=== PATIENT | male | born 1945 ===

== ENCOUNTER 2019-10-09 14:28 | Inpatient (IN) | payer MEDICARE, SELFPAY ==
[2019-10-09] VITALS (11 sets, daily range): BP systolic 144–172; BP diastolic 65–91; PULSE 67–85; RESP 17–40; TEMP 36.5–36.9; O2SAT 91–97; BMI 32.3
--- NOTE | 2019-10-09 14:33 | ED_ITS ---
Entered by Beth Beavers, acting as scribe for Candido Perez MD HPI - SOB/Dyspnea General: Chief Complaint: Shortness of Breath/Dyspnea Stated Complaint: DIFFICULTY BREATHING Time Seen by Provider: 10/09/19 14:33 Source: patient, EMS and RN notes reviewed Mode of arrival: EMS Limitations: no limitations History of Present Illness: HPI Narrative: 74 yo male presents to ED with complaints of shortness of breath. The patient is on 4.5L of oxygen at home, but upon EMS arrival his stats were in the low 80's. Per EMS report the patient has been in bed for 3 days. The patient resides at his home. Per the patient, he confirms that his status is DNI. elicited complaint: shortness of breath Pertinent past history: COPD and congestive heart failure Onset (ago): hour(s) (today) Timing: constant Severity: severe Exacerbating factors: lying flat and movement Relieving factors: nothing Known history of: COPD and congestive heart failure Associated symptoms: Deny abdominal pain, chest pain, fever(s), nausea, polyuria or vomiting Treatment prior to arrival: oxygen Related Data: Home oxygen amount: 4 liters (4.5) Review of Systems Const: Denies: fever or chills Eyes: Denies: change in vision ENMT: Denies: throat pain or mouth pain Card: Denies: chest pain GI: Denies: abdominal pain, nausea, vomiting or diarrhea Musc: Denies: back pain or joint pain Skin/Breast: Denies: rash Neuro: Denies: headache or behavioral changes Psych: Denies: depression Endo: Denies: excessive urination Benson/Lymph: Denies: easy bruising All/Imm: Denies: hives PFSH ED PFSH: Statuses (acute, chronic, etc) shown below reflect problem list status as previously entered and may not be historically accurate Social History Smoking and tobacco status: current every day smoker Physical Exam Const: GENERAL APPEARANCE: in distress HENMT: COMMON NORMALS: normocephalic and external nose normal HEAD & SCALP: normocephalic NOSE: external nose normal and no nasal discharge (nasal dischage) Eye: COMMON NORMALS: PERRL PUPIL: Yes PERRL Neck/C-Spine: COMMON NORMALS: full ROM and no lymphadenopathy Chest: COMMONS NORMALS: inspection of chest normal Resp: EFFORT & INSPECTION: Yes respiratory distress, Yes labored, Yes uses accessory muscles and Yes audible wheezes Cardio: COMMON NORMALS: regular rate and regular rhythm RATE: regular rate RHYTHM: regular rhythm GI: COMMON NORMALS: soft to palpation PALPATION: Yes soft Extremity: COMMON NORMALS: normal to inspection, full ROM and normal capillary refill Psych: COMMON NORMALS: mental status grossly normal and cooperative Skin: COMMON NORMALS: no rashes or lesions noted GENERAL SKIN EXAM: no rashes or lesions noted Course Vital Signs: Vital signs: Vital Signs Temperature 98.5 F 10/09/19 14:30 Pulse Rate 74 10/09/19 17:35 Respiratory Rate 22 H 10/09/19 17:35 Blood Pressure 168/77 10/09/19 17:35 Pulse Oximetry 95 10/09/19 17:35 MDM - SOB/Dyspnea MDM Narrative: Medical decision making narrative: Patient presents here with CHF exacerbation with respiratory distress. Patient is improving on BiPAP. Patient states that he would not want to be intubated if it came to that. I spoke to hospitalist and will admit to stepdown. Patient given antibiotics to for possible pneumonia but x-ray likely shows pulmonary edema. Lab Data: Labs: Lab Results 10/09/19 10/09/19 10/09/19 Range/Units 14:10 14:34 14:41 WBC 8.8 (4.0-10.0) 10^3/ uL RBC 4.70 (4.1-5.3) 10^6/u L Hgb 14.2 (11.7-16.6) g/dL Hct 48.8 (42.0-52.0) % MCV 103.8 H (80-94) fL MCH 30.2 (28.0-34.0) pg MCHC 29.1 L (30.0-36.0) g/dL RDW 13.1 (12.1-15.1) % Plt Count 244 (130-400) 10^3/c mm MPV 10.5 H (7.4-10.4) fL Neut % (Auto) 75.8 % Lymph % (Auto) 13.6 % [place] % (Auto) 9.2 % Eos % (Auto) 0.2 % Baso % (Auto) 0.5 % Neut # (Auto) 6.7 (1.8-7.7) 10^3/u L Lymph # (Auto) 1.2 (0.8-4.8) 10^3/u L [place] # (Auto) 0.8 (0.2-0.9) 10^3/u L Eos # (Auto) 0.0 (0.0-0.8) 10^3/u L Baso # (Auto) 0.0 (0.0-0.1) 10^3/u L Nucleated RBC % (a uto) 0 % Nucleated RBCs # 0.0 /100WBC Specimen Type Arterial Arterial Sample Site Radial, left Radial, left ABG pH 7.23 L 7.27 L (7.35-7.45) ABG pCO2 97.8 H* 88.6 H* (35-45) mmHg ABG pO2 81.2 67.7 L (80.0-100.0) mmH g ABG HCO3 40.6 H 40.7 H (22-26) mmol/L ABG Base Excess 8.8 H 9.9 H (-2.0-2.0) mmol/ L Eduardo Test Pos Pos Hematocrit 43.2 42.9 (42-52) % Hgb O2 Saturation 93.2 L (95-100) % Carboxyhemoglobin 1.6 (0.4-20.1) %THgb Methemoglobin 0.4 (0.4-1.5) % Total Hemoglobin 14.1 (14-18) g/dL O2 Delivery Device Simple mask Bipap O2 Liters/Min 6.0 % FiO2 40.0 % Floatlight Loading Supervisor ID monro monro Sodium (136-145) mmol/L Potassium (3.5-5.1) mmol/L Chloride (98-107) mmol/L Carbon Dioxide (22-29) mmol/L Anion Gap (5-19) BUN (8-23) mg/dL Creatinine (0.7-1.2) mg/dL Glucose (74-106) mg/dL Calcium (8.5-10.5) mg/dL Total Bilirubin (0.15-1.2) mg/dL AST (0-40) U/L ALT (0-41) U/L Alkaline Phosphata se (40-130) IU/L Troponin T Baselin e (0-15) ng/mL NT-Pro-B Natriuret Pep (0-125) pg/mL Total Protein (6.6-8.7) g/dL Albumin (3.5-5.2) g/dL Globulin (1.3-4.6) g/dL 10/09/19 10/09/19 Range/Units 15:14 15:14 WBC (4.0-10.0) 10^3/ uL RBC (4.1-5.3) 10^6/u L Hgb (11.7-16.6) g/dL Hct (42.0-52.0) % MCV (80-94) fL MCH (28.0-34.0) pg MCHC (30.0-36.0) g/dL RDW (12.1-15.1) % Plt Count (130-400) 10^3/c mm MPV (7.4-10.4) fL Neut % (Auto) % Lymph % (Auto) % [place] % (Auto) % Eos % (Auto) % Baso % (Auto) % Neut # (Auto) (1.8-7.7) 10^3/u L Lymph # (Auto) (0.8-4.8) 10^3/u L [place] # (Auto) (0.2-0.9) 10^3/u L Eos # (Auto) (0.0-0.8) 10^3/u L Baso # (Auto) (0.0-0.1) 10^3/u L Nucleated RBC % (a uto) % Nucleated RBCs # /100WBC Specimen Type Sample Site ABG pH (7.35-7.45) ABG pCO2 (35-45) mmHg ABG pO2 (80.0-100.0) mmH g ABG HCO3 (22-26) mmol/L ABG Base Excess (-2.0-2.0) mmol/ L Eduardo Test Hematocrit (42-52) % Hgb O2 Saturation (95-100) % Carboxyhemoglobin (0.4-20.1) %THgb Methemoglobin (0.4-1.5) % Total Hemoglobin (14-18) g/dL O2 Delivery Device O2 Liters/Min % FiO2 % Floatlight Loading Supervisor ID Sodium 147 H (136-145) mmol/L Potassium 4.4 (3.5-5.1) mmol/L Chloride 97 L (98-107) mmol/L Carbon Dioxide 38 H (22-29) mmol/L Anion Gap 16.4 (5-19) BUN 17 (8-23) mg/dL Creatinine 1.0 (0.7-1.2) mg/dL Glucose 184 H (74-106) mg/dL Calcium 10.1 (8.5-10.5) mg/dL Total Bilirubin 0.5 (0.15-1.2) mg/dL AST 20 (0-40) U/L ALT 20 (0-41) U/L Alkaline Phosphata se 110 (40-130) IU/L Troponin T Baselin e 114 H* (0-15) ng/mL NT-Pro-B Natriuret Pep 00277 H (0-125) pg/mL Total Protein 8.2 (6.6-8.7) g/dL Albumin 4.5 (3.5-5.2) g/dL Globulin 3.7 (1.3-4.6) g/dL Imaging Data^: CXR: Radiologist's impression: [facility] Final Radiology Report Call: [phone] assistance Online chat: [email or web address] Name: ALIZA NAGEL Age: 74Years M Date: 10/09/2019 SSN: -- : 1945 Study: XR CHEST 1 VIEW Requesting Physician: candido Perez Images: 1 Add?l Studies: Provided Clinical History: sob CONFIDENTIALITY STATEMENT This report is intended only for use by the referring physician, and only in accordance with law. If you received this in error, call [phone]. Page 1 of 1 PROCEDURE INFORMATION: Exam: XR Chest, 1 View Exam date and time: 10/09/2019 2:35 PM Age: 74 years old Clinical indication: Dyspnea; Patient HX: PT denies surg HX on chest, PT is a current smoker, PT denies HX of CA. ; Additional info: SOB TECHNIQUE: Imaging protocol: XR of the chest Views: 1 view. COMPARISON: [facility] Chest 2 views 02/02/2019 3:08 PM FINDINGS: Lungs: Diffusely prominent interstitial markings similar to prior wi th hazy increased bibasilar opacities partially silhouetting the hemidiaphragms, right greater than left. Otherwise no lobar consolidation. Pleural space: Small right effusion not excluded. No visible pneumothorax. Heart/Mediastinum: Cardiac silhouette mildly enlarged. Bones/joints: Unremarkable. IMPRESSION: Diffuse interstitial prominence with hazy increased right greater than left basilar opacities, favor edema superimposed on emphysema. Developing right lower lobe pneumonia not excluded. Thank you for allowing us to participate in the care of your patient. Dictated and Authenticated by: Elier Thomas MD 10/09/2019 EKG Data^: EKG 1: Attestation: I personally reviewed and interpreted this EKG as follows: EKG Interpretation Date: 10/09/19 EKG interpretation time: 15:08 Interpretation: nsr hr [address] or t wave abnormalities rbbb EKG 2: Attestation: I personally reviewed and interpreted this EKG as follows: EKG Interpretation Date: 10/09/19 EKG interpretation time: 16:35 Interpretation: nsr hr [address] with no st or t wave abnormalities Discharge Plan Discharge Patient Disposition: Admitted As Inpatient Admit Provider: Misa Joyce Clinical Impression: Congestive heart failure Qualifiers: Heart failure type: unspecified Heart failure chronicity: unspecified Qualified Code(s): I50.9 - Heart failure, unspecified Condition: Stable Coding Level of Care Code ED Deckhand Sponge Boat for Chg Fwd The documentation recorded by the Ruthann sethi Valerie R, accurately reflects the service I personally performed and the decisions made by Chris plunkett Korby, MD Oct 09, 2019 14:28
--- NOTE | 2019-10-09 14:34 | XRR_ITS ---
PROCEDURE INFORMATION: Exam: XR Chest, 1 View Exam date and time: 10/09/2019 2:35 PM Age: 74 years old Clinical indication: Dyspnea; Patient HX: PT denies surg HX on chest, PT is a current smoker, PT denies HX of CA. ; Additional info: SOB TECHNIQUE: Imaging protocol: XR of the chest Views: 1 view. COMPARISON: [facility] Chest 2 views 02/02/2019 3:08 PM FINDINGS: Lungs: Diffusely prominent interstitial markings similar to prior with hazy increased bibasilar opacities partially silhouetting the hemidiaphragms, right greater than left. Otherwise no lobar consolidation. Pleural space: Small right effusion not excluded. No visible pneumothorax. Heart/Mediastinum: Cardiac silhouette mildly enlarged. Bones/joints: Unremarkable. XR/XR chest 1V portable [id number] IMPRESSION: Diffuse interstitial prominence with hazy increased right greater than left basilar opacities, favor edema superimposed on emphysema. Developing right lower lobe pneumonia not excluded.
--- NOTE | 2019-10-09 14:35 | ECG_ITS ---
Measurements Intervals [place] Rate: 70 P: -17 [place]: 167 QRS: -80 QRSD: 150 T: 79 QT: 442 QTc: 479 SINUS RHYTHM LEFT AXIS DEVIATION [QRS AXIS < -30] RIGHT BUNDLE BRANCH BLOCK [120+ ms QRS DURATION, UPRIGHT V1, 40+ ms S IN I/aVL/V4/V5/V6] INTERPRETATION BASED ON A DEFAULT AGE OF 40 YEARS No previous ECG available for comparison Electronically Signed On 10-09-2019 18:54:09 QUALITY MANAGEMENT NURSE by Denny Olvera M.D. [id number]
[2019-10-09 14:47] LABS: Basophils % 0.5 %; Eosinophils % 0.2 %; Hematocrit 48.8 % (42.0-52.0); Hemoglobin 14.2 g/dL (11.7-16.6); Lymphocytes # 1.2 10^3/uL (0.8-4.8); Lymphocytes % 13.6 %; Mean Corpuscular HGB Conc 29.1 g/dL (30.0-36.0); Mean Corpuscular Hemoglobin 30.2 pg (28.0-34.0); Mean Corpuscular Volume 103.8 fL (80-94); Mean Platelet Volume 10.5 fL (7.4-10.4); Monocytes # 0.8 10^3/uL (0.2-0.9); Monocytes % 9.2 %; Neutrophils # 6.7 10^3/uL (1.8-7.7); Neutrophils % 75.8 %; Nucleated Red Blood Cells % 0 %; Platelet Count 244 10^3/cmm (130-400); Red Cell Distribution Width 13.1 % (12.1-15.1); White Blood Count 8.8 10^3/uL (4.0-10.0)
[2019-10-09 14:51] LABS: ABG PCO2 97.8 mmHg (35-45); ABG PH Result 7.23 (7.35-7.45); Arterial Blood Gas Hematocrit 43.2 % (42-52); Base Excess ABG 8.8 mmol/L (-2.0-2.0); Blood Gas Allen Test Pos; Blood Gas Sample Site Radial, left; Blood Gas Sample Type Arterial; Carboxyhemoglobin 1.6 %THgb (0.4-20.1); HCO3 ABG 40.6 mmol/L (22-26); HGB O2 Sat 93.2 % (95-100); Methemoglobin 0.4 % (0.4-1.5); Oxygen Device SIMPLE MASK; PO2 ABG 81.2 mmHg (80.0-100.0); Total Hemoglobin 14.1 g/dL (14-18)
[2019-10-09] MEDS: ipratropium-albuterol 3 mL Neb INHALATION ×2 (15:02→20:08)
[2019-10-09] MEDS: vancomycin 1,000 MG in sodium chloride 0.9% 250 ML 250 MG IV (15:55)
[2019-10-09] MEDS: piperacillin-tazobactam 3.375 GM in sodium chloride 0.9% (plus) 50 ML IV (15:55)
[2019-10-09 16:01] LABS: Alanine Aminotransferase 20 U/L (0-41); Albumin Level 4.5 g/dL (3.5-5.2); Alkaline Phosphatase 110 IU/L (40-130); Anion Gap 16.4 (5-19); Aspartate Amino Transferase 20 U/L (0-40); Blood Urea Nitrogen 17 mg/dL (8-23); Calcium 10.1 mg/dL (8.5-10.5); Carbon Dioxide 38 mmol/L (22-29); Chloride 97 mmol/L (98-107); Globulin 3.7 g/dL (1.3-4.6); Glucose 184 mg/dL (74-106); NT Pro B Type Natriuretic Pept 11474 pg/mL (0-125); Potassium 4.4 mmol/L (3.5-5.1); Sodium 147 mmol/L (136-145); Total Bilirubin 0.5 mg/dL (0.15-1.2); Total Protein 8.2 g/dL (6.6-8.7)
[2019-10-09 16:19] LABS: Troponin(5th) Baseline 114 ng/mL (0-15)
--- NOTE | 2019-10-09 16:35 | ECG_ITS ---
Measurements Intervals [place] Rate: 80 P: -8 [place]: 169 QRS: -84 QRSD: 146 T: 74 QT: 407 QTc: 470 SINUS RHYTHM WITH OCCASIONAL SUPRAVENTRICULAR PREMATURE COMPLEXES LEFT AXIS DEVIATION [QRS AXIS < -30] RIGHT BUNDLE BRANCH BLOCK [120+ ms QRS DURATION, UPRIGHT V1, 40+ ms S IN I/aVL/V4/V5/V6] No previous ECG available for comparison Electronically Signed On 10-09-2019 18:56:10 SENIOR GOVERNMENT PROGRAM ANALYST by Denny Olvera M.D. [id number]
[2019-10-09] MEDS: FUROsemide 10 mg/mL SDV 10mL 80 MG IVP (16:39)
[2019-10-09 16:55] LABS: ABG PCO2 88.6 mmHg (35-45); ABG PH Result 7.27 (7.35-7.45); Arterial Blood Gas Hematocrit 42.9 % (42-52); Base Excess ABG 9.9 mmol/L (-2.0-2.0); Blood Gas Allen Test Pos; Blood Gas Sample Site Radial, left; Blood Gas Sample Type Arterial; HCO3 ABG 40.7 mmol/L (22-26); Oxygen Device BIPAP; PO2 ABG 67.7 mmHg (80.0-100.0)
--- NOTE | 2019-10-09 17:54 | PM.HP ---
Providers/Chief Complaint Admitting Physician: Misa Joyce MD Chief Complaint: chf exacerbation;pneumonia History of Present Illness Dar Ellison is a 74 year old male with PMH 02 dependent chronic obstructive pulmonary disease(4L at home), chronic diastolic congestive heart failure on lasix, obstructive sleep apnea; he refuses to wear CPAP, coronary artery disease, morbid obesity, type II diabetes mellitus, hypertension, hyperlipidemia, abdominal aortic aneurysm repair and Prinzmetal's angina. He presented with complaints of worsening exertional dyspnea over the past 6 to 7 days. He states he got more more short of breath. Of note he has not been taking his Lasix over the past 2 to 3 days because it gave him muscle cramps. has been taking his nebulizations and oxygen at home. For the same. He has also noticed increased cough with expectoration. No other URI type symptoms. His has been sick with a cough as well. No chest pain or palpitations. Does not note any dizziness or falls. Upon arrival at the ED here he was noted to be in severe respiratory distress. He was tachypneic with respiratory rate in the 40s. ABG at presentation showed a pH of 7.23, CO2 of 97.8, PO2 of 81. upon arrival received 80 mg of IV Lasix 25 mg of IV Solu-Medrol and has remained on BiPAP since then. He was also reportedly mildly lethargic. At the time of my exam he is able to talk in sentences and gives me a history. His respiratory rate at this present time 22/min. He appears more comfortable at exam reportedly. Review of Systems General: Reports: 10 or more systems reviewed and unremarkable except in HPI and below Const: Denies: fever, chills or body aches Eyes: Denies: change in vision, blurry vision or photophobia ENMT: Reports: hoarseness; Denies: throat pain, enlarged tonsils, painful swallowing or nasal congestion Card: Denies: chest pain, palpitations, irregular heart rhythm, edema, swelling of feet/ankles, lightheadedness, pre-syncope, shortness of breath on exertion or shortness of breath when lying down Resp: Reports: productive cough and change in phlegm color; Denies: shortness of breath, wheezing, stridor, pain on inspiration, coughing up blood or chest congestion GI: Denies: abdominal pain, nausea, vomiting, vomiting blood, coffee grounds in vomit, difficulty swallowing, heartburn/indigestion, diarrhea, constipation, cramping, change in stool character, blood in stool or black tarry stool : Denies: flank pain, painful urination, urinary frequency, urinary urgency, urinary hesitancy or blood in urine Musc: Denies: neck pain, back pain, extremity pain, joint swelling, joint warmth or deformity Neuro: Denies: headache, numbness in extremities, weakness in extremities, changes in sensation, difficulty walking, frequent falls, dizziness, vertigo, behavioral changes, slurred speech or seizure-like activity Psych: Denies: anxiety, depression, suicidal ideation or homicidal ideation Endo: Denies: excessive urination, excessive thirst, tired all the time, cold intolerance or hot flashes Benson/Lymph: Denies: easy bruising or easy bleeding Medications/Allergies Home Medications Medication Instructions Recorded Confirmed Last Taken Type aspirin 325 mg PO DAILY 10/09/19 10/09/19 10/09/19 History furosemide [Lasix] 60 mg PO DAILY 10/09/19 10/09/19 10/08/19 History glyburide See Rx Instructions .ROUTE .COMPLEX 10/09/19 10/09/19 10/08/19 History irbesartan 300 mg PO DAILY 10/09/19 10/09/19 10/08/19 History isosorbide mononitrate 240 mg PO DAILY 10/09/19 10/09/19 10/08/19 History metoprolol tartrate 25 mg PO BID 10/09/19 10/09/19 10/08/19 History nitroglycerin [Nitrostat] 0.4 mg SUBLINGUAL Q5M PRN 10/09/19 10/09/19 Unknown History tramadol 50 mg PO TID PRN 10/09/19 10/09/19 10/08/19 History Allergies Allergy/AdvReac Type Severity Reaction Status Date / Time No Known Allergies Allergy Verified 10/09/19 14:39 PFSH Acute PFSH: Statuses (acute, chronic, etc) shown below reflect problem list status as previously entered and may not be historically accurate Medical History (Updated 10/09/19 @ 18:02 by Misa Joyce MD) CAD (coronary artery disease) (Acute) COPD (chronic obstructive pulmonary disease) (Acute) Diabetes mellitus (Acute) Hypercapnic respiratory failure (Acute) Hyperlipidemia (Acute) Hypertension (Acute) Morbid obesity (Acute) Prinzmetal angina (Acute) Sleep apnea (Acute) Surgical History (Updated 10/09/19 @ 18:02 by Misa Joyce MD) S/P AAA repair (Acute) Family History (Updated 10/09/19 @ 18:02 by Misa Joyce MD) Other CAD (coronary artery disease) Social History (Updated 10/09/19 @ 18:03 by Misa Joyce MD) Smoking and tobacco status: current every day smoker Alcohol intake: former Substance/Drug Use: never Vitals/I&O/Wt Last Vital Signs Temp 98.5 F 10/09/19 14:30 Pulse 74 10/09/19 17:35 Resp 22 H 10/09/19 17:35 BP 168/77 10/09/19 17:35 Pulse Ox 95 10/09/19 17:35 Weight last 48 hrs Weight 111.13 kg Physical Exam Narrative: EXAM NARRATIVE: GEN: Awake, alert and oriented, able to talk to me with sentences though on BiPAP. HEENT: Currently on BiPAP CVS: S1S2 N RS: Bilateral coarse conducted breath sounds and crackles in the infra-axillary areas. Abd: Soft, nt/nd , bs+ JOURNEYMAN SHEET METAL WORKER: no focal neuro deficits Extremity 2+ pitting edema peripheral pulses within normal limits. Data : 10/09/19 14:10 10/09/19 15:14 Micro: Microbiology 10/09/19 14:51 Blood Culture - Preliminary Blood SPECIMEN COLLECTED 10/09/19 14:48 Blood Culture - Preliminary Blood SPECIMEN COLLECTED A&P Assessment and plan (1) Hypertension: Status: Acute Code(s): I10 - Essential (primary) hypertension (2) Morbid obesity: Status: Acute Code(s): E66.01 - Morbid (severe) obesity due to excess calories (3) Diabetes mellitus: Status: Acute Code(s): E11.9 - Type 2 diabetes mellitus without complications (4) Hyperlipidemia: Status: Acute Code(s): E78.5 - Hyperlipidemia, unspecified (5) CAD (coronary artery disease): Status: Acute Code(s): I25.10 - Atherosclerotic heart disease of [place] coronary artery without angina pectoris (6) Sleep apnea: Status: Acute Code(s): G47.30 - Sleep apnea, unspecified (7) Hypercapnic respiratory failure: Status: Acute Code(s): J96.92 - Respiratory failure, unspecified with hypercapnia (8) COPD (chronic obstructive pulmonary disease): Status: Acute Code(s): J44.9 - Chronic obstructive pulmonary disease, unspecified (9) Congestive heart failure: Status: Acute Qualifiers: Heart failure chronicity: unspecified Heart failure type: unspecified Qualified Code(s): I50.9 - Heart failure, unspecified Code(s): I50.9 - Heart failure, unspecified Additional A&P Information Admit patient to the cardiac stepdown unit. 1 . CHF exacerbation likely secondary to medication noncompliance He has already received 80 mg of IV push Lasix in the ED. We will start 80 mg IV Lasix every 12 hours. Kirkpatrick placement for accurate urine output assessment. Continue irbesartan 3 mg p.o. daily. If not on formulary may be replaced by formulary medication BNP grossly elevated at >83224 2. Acute hypercapnic respiratory failure secondary to COPD exacerbation. DuoNebs inhalation every 4 hour. Steroids Solu-Medrol 80 mg IV every 6 hours Continuous BiPAP for now and at nighttime. May titrate down to nasal cannula as tolerated. Cannot rule rule out developing infiltrate on chest x-ray. Start Levaquin 750 mg daily. 3. Diabetes: Insulin siding scale for now hold home dose of OHA 4. HTN: continue irbesartan 5. h/o CAD: continue ASA 325mg qd. troponin elevated likely in the setting of CHF. 2 hr delta <10. No chest pain or acute ST-T changes on EKG DVT ppx: lovenox Code status: DNR Attestations Medical Necessity Statement*: >2 midnight anticipated for management of acute on chronic CHF and COPD exacerbation Coding Level of Care Code Acute Air Twist Operator for Chg Fwd Diagnoses Hypertension I10 Morbid obesity E66.01 Diabetes mellitus E11.9 Hyperlipidemia E78.5 CAD (coronary artery disease) I25.10 Sleep apnea G47.30 Hypercapnic respiratory failure J96.92 COPD (chronic obstructive pulmonary disease) J44.9 Congestive heart failure I50.9 Heart failure chronicity: unspecified Heart failure type: unspecified
[2019-10-09] MEDS: enoxaparin 40 mg/0.4 mL Syringe SUBCUT (19:10)
[2019-10-09] MEDS: metoprolol tartrate 25 mg Tablet PO (19:10)
--- NOTE | 2019-10-09 19:40 | PC.NURSE ---
Walked into patients room and patient had ripped off his bipap mask off and ripped out one of his IV's. This nurse asked the patient why he took his bipap off and he said cause he wanted too and that he was hot. I explained why the patient needed the bipap off and asked if we took a break if he would try wearing it again at bedtime. Patient agreed, and nasal cannula was applied. Patients other IV was cobanded, Patient knew where he was, who he was, year, and thought the president was [facility]. Patient also knew which button to press to call the nurse. Patients bed alarm activated. Patients to L arm was catheter was intact, dressing implied, minimal bleeding noted. Will continue to monitor.
--- NOTE | 2019-10-09 20:35 | ECG_ITS ---
Measurements Intervals [place] Rate: 72 P: 9 [place]: 170 QRS: -87 QRSD: 141 T: 85 QT: 414 QTc: 453 SINUS RHYTHM MARKED LEFT AXIS DEVIATION [QRS AXIS < -30] RIGHT BUNDLE BRANCH BLOCK [120+ ms QRS DURATION, UPRIGHT V1, 40+ ms S IN I/aVL/V4/V5/V6] Compared to ECG 10/09/2019 16:35:47 No significant changes Electronically Signed On 10-10-2019 17:52:31 PULP MAKER by Denny Olvera M.D. [id number]
[2019-10-09 20:59] LABS: Glucose Point of Care 266 mg/dL (70-110)
[2019-10-09 21:53] LABS: Troponin 5 6HR Delta 10.4 ng/L (0-12)
[2019-10-09 21:57] LABS: Troponin 5 6HR 124.4 ng/L (0-15)
--- NOTE | 2019-10-09 22:26 | PC.NURSE ---
At 2208 Went and assessed after critical troponin and patient stated he was having 8/10 chest pain. Blood pressure was elevated and patient was having trouble breathing with respirations in the 30's. Patient was pale with increased confusion. Patient stated put that thing on me . I asked if he meant the bipap and he said yes . Bipap was placed and I contacted the doctor to update on patient appearance. At 2229 one on one sitter called out asking for assistance and I went down. Patient was cussing at the sitter, pulling at the edwards, stating that he never agreed to wear the bipap and he never had chest pain. I tried to re orient patient and explain what the bipap was for and that his respirations had already improved and were 20. Patient said he did not care and wanted it off NOW. Bipap was removed and nasal cannula applied, I asked if patient was in any pain and he denied at this time. Will continue to monitor.
[2019-10-10] VITALS (24 sets, daily range): BP systolic 126–169; BP diastolic 62–116; PULSE 56–106; RESP 16–36; TEMP 36.6–37.2; O2SAT 88–95
[2019-10-10] MEDS: ipratropium-albuterol 3 mL Neb INHALATION ×6 (03:23→23:29)
[2019-10-10 05:04] LABS: Basophils % 0.1 %; Hematocrit 46.9 % (42.0-52.0); Hemoglobin 14.1 g/dL (11.7-16.6); Lymphocytes # 0.3 10^3/uL (0.8-4.8); Mean Corpuscular HGB Conc 30.1 g/dL (30.0-36.0); Mean Corpuscular Volume 99.8 fL (80-94); Mean Platelet Volume 10.5 fL (7.4-10.4); Monocytes # 0.4 10^3/uL (0.2-0.9); Monocytes % 4.2 %; Neutrophils # 7.7 10^3/uL (1.8-7.7); Neutrophils % 91.1 %; Nucleated Red Blood Cells % 0 %; Platelet Count 242 10^3/cmm (130-400); White Blood Count 8.5 10^3/uL (4.0-10.0)
[2019-10-10] MEDS: levoFLOXacin 750 mg Tablet PO (05:19)
[2019-10-10] MEDS: FUROsemide 10 mg/mL SDV 10mL 80 MG IVP ×2 (05:20→17:23)
[2019-10-10 05:38] LABS: Blood Urea Nitrogen 24 mg/dL (8-23); Calcium 10.3 mg/dL (8.5-10.5); Carbon Dioxide 36 mmol/L (22-29); Chloride 92 mmol/L (98-107); Glucose 255 mg/dL (74-106); Osmolality Calculated 303 mOsm/kg (285-295); Sodium 144 mmol/L (136-145)
--- NOTE | 2019-10-10 06:23 | PC.NURSE ---
Patient remains confused. 1:1 sitter at bedside. Patient refusing to wear bipap. Staff has tried multiple times to get him to wear bipap and he will for 30 minutes and then get agitated and rip it off. Patient states the bipap makes him hot or he just doesn't want to wear it . Patient has been incontinent of stool x2. Patient is weak and requires x2 assist to stand. Patient has pulled at his edwards catheter, IV site, telemetry, and is restless at times. Will continue to monitor.
[2019-10-10 06:37] LABS: Glucose Point of Care 210 mg/dL (70-110)
[2019-10-10] MEDS: aspirin 325 mg Tablet PO (09:47)
[2019-10-10] MEDS: losartan 50 mg Tablet 100 MG PO (09:47)
[2019-10-10] MEDS: pantoprazole DR 40 mg Tablet PO (09:47)
[2019-10-10] MEDS: metoprolol tartrate 25 mg Tablet PO ×2 (09:48→17:23)
[2019-10-10 11:38] LABS: Glucose Point of Care 122 mg/dL (70-110)
--- NOTE | 2019-10-10 12:44 | PC.CHAP ---
Pastoral Care Encounter/Spiritual Assessment Type of Contact [] Declined health data administrator visit [] Patient/Family/Request visit [] Outpatient visit [] Follow-up visit [] Physician referral [] Code/Alert [x] Routine visit [] Staff referral [] Actively dying [] Patient sleeping [] Family support [] [] Out of room [] Palliative care [] [x] Receiving care in room [] Pre-surgical visit [] Trauma [x] Long length of stay [] ICU visit [x] Other: No one manager of organizational development. Relational/Emotional Strength [] Patient feels connected with others/family/visitors/staff [x] Distress [x] Loneliness/isolation [] Abandonment Spirituality of Patient [x] Person of Payal [] Attends Restorationist of their Payal [x] Believes in Prayer [] Reads Bible or Christianity materials [] There are Spiritual issues to be addressed Hide Cleaner Interventions [x] Prayer [x] Active listening [] Non-anxious presence [x] Spiritual/emotional support [] Crisis/trauma care [x] Spiritual counseling [] Bereavement support [] Provided bereavement packet [] Provided Bible/devotional materials [] Provided toy/stuffed animal, coloring book to patient or family member [x] Completed spiritual assessment [] Provided Communion [] Anointing/[place] [] Salvation [] Other: Impact on Illness or Injury [] Angry [x] Fearful [x] Anxious [] Often cries [x] Exhaustion [] Unable to work [] Unable to attend moravian [] Unable to walk/stand [x] Unable to read [] Unable to drive [] Unable to eat/drink [] Unable to sleep [x] Unable to be with family [] Other: Summary Able to communicate, but doesn't know anynof sysemtoms. Had one on one care in room. Time spent with patient 10 min
--- NOTE | 2019-10-10 13:18 | PM.PN ---
Subjective Subjective: Interval history: Overnight patient refused to wear the BiPAP. Was confused and pulling on his Kirkpatrick catheter so 1 is to 1 sitter was placed. On evaluation patient is lying comfortably in bed with CPAP on. He saturating 94% on CPAP 8. He is AO x2. As per his daughter who is bedside patient is hallucinating. Patient denies of having any nausea, vomiting, headache. Medications: Medication Review Details: Med rec not completely done Vitals/I&O/Wt Last Vital Signs Temp 97.8 F 10/10/19 11:30 Pulse 70 10/10/19 11:30 Resp 22 H 10/10/19 11:30 BP 166/89 10/10/19 11:30 Pulse Ox 90 10/10/19 11:30 10/09/19 10/10/19 10/10/19 22:59 06:59 14:59 Intake Total 240 / 240 238 / 238 Output Total 1600 / 1600 1000 / 2600 1999 / 1999 Balance -1600 / -1600 -760 / -2360 -1762 / -1762 Weight last 48 hrs Weight 111.13 kg Physical Exam Narrative: EXAM NARRATIVE: General: No acute distress, AO x 2, to self and place. Confused. HEENT: PERRLA, pupils bilaterally equal and reactive Chest: Normal vesicular breath sounds, bilateral fine crackles up to mid chest, equal good air entry bilaterally CVS: S1-S2 regular, no murmurs, no tachycardia, no gallops, no rubs Abdomen: Soft, nontender, no organomegaly, bowel sounds present Neuro: No focal deficits, no facial deformity, moving all 4 limbs, power 5/5 in all limbs Urinary Catheter Management^: Kirkpatrick: Cath Placed During This Visit: no Data : 10/10/19 04:13 10/10/19 04:13 Micro: Microbiology 10/09/19 14:51 Blood Culture - Preliminary Blood SPECIMEN COLLECTED 10/09/19 14:48 Blood Culture - Preliminary Blood SPECIMEN COLLECTED A&P Assessment and plan (1) Acute on chronic respiratory failure with hypoxia and hypercapnia: Status: Acute Code(s): J96.21 - Acute and chronic respiratory failure with hypoxia; J96.22 - Acute and chronic respiratory failure with hypercapnia (2) Congestive heart failure: Status: Acute Qualifiers: Heart failure chronicity: unspecified Heart failure type: unspecified Qualified Code(s): I50.9 - Heart failure, unspecified Code(s): I50.9 - Heart failure, unspecified (3) COPD (chronic obstructive pulmonary disease): Status: Acute Code(s): J44.9 - Chronic obstructive pulmonary disease, unspecified (4) Sleep apnea: Status: Acute Code(s): G47.30 - Sleep apnea, unspecified (5) Hypertension: Status: Acute Code(s): I10 - Essential (primary) hypertension (6) Diabetes mellitus: Status: Acute Code(s): E11.9 - Type 2 diabetes mellitus without complications (7) Hyperlipidemia: Status: Acute Code(s): E78.5 - Hyperlipidemia, unspecified (8) CAD (coronary artery disease): Status: Acute Code(s): I25.10 - Atherosclerotic heart disease of [place] coronary artery without angina pectoris (9) Morbid obesity: Status: Acute Code(s): E66.01 - Morbid (severe) obesity due to excess calories Additional A&P Information Acute on chronic respiratory failure with hypoxia and hypercapnia: Most likely multifactorial .mostly congestive heart failure of unknown type due to noncompliance with medication along with COPD exacerbation and sleep apnea. BNP grossly elevated to more than 11,000. Last echo from 2019 shows dilated LV with EF of 36% and grade 2 diastolic dysfunction. Patient is overall 4.5 L negative since admission. We will continue IV Lasix 80 mg twice daily. Will monitor kidney functions. Strict intake and output charting. Daily weights. Patient is noncompliant to CPAP. Saturating 94% on pressure of 8. We will give a trial of high flow keeping saturation over 90%. Continue DuoNeb's [id number], budesonide twice daily. Continue with Levaquin already started yesterday. Day 2/5. Will wean off Solu-Medrol to 40 every 12 today. 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 Patient smokes up to 3 packs/day. Already weaning off Solu-Medrol. Nicotine patch ordered. Diabetes: Continue with moderate insulin siding scale for now hold home dose of OHA. Check HbA1c. Hypertension: Continue on home dose of RONI inhibitor. Blood pressure at goal. Patient also takes Imdur at home but not sure of the dose. Have asked the to get the medication list. h/o CAD: Troponins negative. Continue with home dose of aspirin. Patient is not on statin at home. Will check lipid panel tomorrow morning. DVT ppx: lovenox Code status: DNR Attestations Medical Necessity Statement*: Needs controlled hospitalization for management of acute on chronic respiratory failure with hypoxia and hypercapnia. Time Spent in Patient Care: Greater than 35 minutes Coding Level of Care Code Acute Metallic Yarn Slitting Machine Operator for [facility] Fwd Diagnoses Acute on chronic respiratory failure with hypoxia and hypercapnia J96.21; J96.22 Congestive heart failure I50.9 Heart failure chronicity: unspecified Heart failure type: unspecified COPD (chronic obstructive pulmonary disease) J44.9 Sleep apnea G47.30 Hypertension I10 Diabetes mellitus E11.9 Hyperlipidemia E78.5 CAD (coronary artery disease) I25.10 Morbid obesity E66.01
[2019-10-10] MEDS: TRAMadol 50 mg Tablet PO (14:59)
[2019-10-10 16:48] LABS: Glucose Point of Care 228 mg/dL (70-110)
[2019-10-10] MEDS: enoxaparin 40 mg/0.4 mL Syringe SUBCUT (17:23)
--- NOTE | 2019-10-10 20:28 | PC.NURSE ---
Med reconciled and clarified/family brought pt's home bottles brought pt's home med bottles. Meds were reviewed and reconciled. Called [facility] pharmacy regarding pt's Imdur. Pharmacy stated pt has not refill his meds since January 2019. He does have the Rx of 240 mg of Imdur ER daily. Notified.
[2019-10-10] MEDS: nicotine 21 mg Patch 1 PATCH TRANSDERMA (20:49)
[2019-10-10 21:31] LABS: Glucose Point of Care 138 mg/dL (70-110)
[2019-10-11] VITALS (22 sets, daily range): BP systolic 103–168; BP diastolic 48–69; PULSE 52–69; RESP 16–31; TEMP 36.5–36.9; O2SAT 87–95
[2019-10-11] MEDS: ipratropium-albuterol 3 mL Neb INHALATION ×6 (03:09→23:27)
[2019-10-11 04:15] LABS: Anion Gap 15.1 (5-19); Blood Urea Nitrogen 39 mg/dL (8-23); Calcium 10.2 mg/dL (8.5-10.5); Chloride 89 mmol/L (98-107); Chol HDL Ratio 4.35 mg/dL (1.0-5.00); Cholesterol 213 mg/dL (0-200); Glucose 198 mg/dL (74-106); HDL Cholesterol 49 mg/dL (60-100); LDL Cholesterol Calculated 122 mg/dL (50-129); Osmolality Calculated 307 mOsm/kg (285-295); Potassium 4.1 mmol/L (3.5-5.1); Sodium 147 mmol/L (136-145); Triglycerides 211 mg/dL (0-150); VLDL Cholestrol Calculation 42 mg/dL (0-30)
[2019-10-11 04:34] LABS: Hematocrit 51.3 % (42.0-52.0); Hemoglobin 15.6 g/dL (11.7-16.6); Lymphocytes # 0.9 10^3/uL (0.8-4.8); Lymphocytes % 10.2 %; Mean Corpuscular HGB Conc 30.4 g/dL (30.0-36.0); Mean Corpuscular Hemoglobin 29.8 pg (28.0-34.0); Mean Corpuscular Volume 98.1 fL (80-94); Mean Platelet Volume 10.6 fL (7.4-10.4); Monocytes % 11.3 %; Neutrophils # 6.8 10^3/uL (1.8-7.7); Neutrophils % 78.2 %; Nucleated Red Blood Cells % 0 %; Platelet Count 254 10^3/cmm (130-400); Red Blood Count 5.23 10^6/uL (4.1-5.3); Red Cell Distribution Width 13.2 % (12.1-15.1); White Blood Count 8.7 10^3/uL (4.0-10.0)
[2019-10-11 05:13] LABS: Carbon Dioxide 47 mmol/L (22-29)
[2019-10-11] MEDS: FUROsemide 10 mg/mL SDV 10mL 80 MG IVP (05:54)
[2019-10-11] MEDS: levoFLOXacin 750 mg Tablet PO (05:55)
[2019-10-11 06:04] LABS: Estmated Average Glucose 157; Hemoglobin A1C 7.1 % (4.0-6.0)
[2019-10-11 06:41] LABS: Glucose Point of Care 149 mg/dL (70-110)
--- NOTE | 2019-10-11 06:42 | PC.NURSE ---
CRITICAL LAB WAS CALLED TO FLOOR AND CHARGE NURSE TOOK IT. CHARGE NURSE NOTIFIED HOSPITALIST. NO FURTHER ACTION WAS TAKEN. NO NEW ORDERS.
[2019-10-11] MEDS: metoprolol tartrate 25 mg Tablet PO (08:27)
[2019-10-11] MEDS: pantoprazole DR 40 mg Tablet PO (08:27)
[2019-10-11] MEDS: aspirin 325 mg Tablet PO (08:28)
[2019-10-11] MEDS: losartan 50 mg Tablet 100 MG PO (08:29)
[2019-10-11] MEDS: nicotine 21 mg Patch 1 PATCH TRANSDERMA (08:29)
[2019-10-11 09:51] LABS: ABG PCO2 76.3 mmHg (35-45); ABG PH Result 7.46 (7.35-7.45); Arterial Blood Gas Hematocrit 50.2 % (42-52); Base Excess ABG 23.5 mmol/L (-2.0-2.0); Blood Gas Allen Test Pos; Blood Gas Sample Site Radial, left; Blood Gas Sample Type Arterial; HCO3 ABG 53.6 mmol/L (22-26); Oxygen Device NC; PO2 ABG 56.8 mmHg (80.0-100.0)
[2019-10-11 11:47] LABS: Glucose Point of Care 200 mg/dL (70-110)
[2019-10-11 15:47] LABS: ABG PH Result 7.43 (7.35-7.45); Arterial Blood Gas Hematocrit 50.1 % (42-52); Base Excess ABG 18.6 mmol/L (-2.0-2.0); Blood Gas Allen Test Pos; Blood Gas Sample Site Radial, left; Blood Gas Sample Type Arterial; HCO3 ABG 48.1 mmol/L (22-26); Oxygen Device NC; PO2 ABG 57.5 mmHg (80.0-100.0)
--- NOTE | 2019-10-11 16:01 | PM.PN ---
Subjective Subjective: Interval history: No acute events overnight. Patient has been doing better since being put on high flow nasal cannula PEEP. Patient is AO x3 this morning. States that shortness of breath is mildly improved. Denies of having any nausea, vomiting, palpitations, headache. Overnight telemetry shows his heart rate is been in 50 to 60 bpm. Vitals/I&O/Wt Last Vital Signs Temp 98.0 F 10/11/19 11:25 Pulse 57 L 10/11/19 15:41 Resp 18 10/11/19 15:41 BP 127/65 10/11/19 11:25 Pulse Ox 88 L 10/11/19 15:41 10/11/19 10/11/19 10/11/19 06:59 14:59 22:59 Intake Total 720 / 720 Output Total 850 / 2950 1000 / 1000 Balance -850 / -2352 -280 / -280 Weight last 48 hrs Weight 105.097 kg Physical Exam Narrative: EXAM NARRATIVE: General: No acute distress, AO x 2, to self and place. Confused. HEENT: PERRLA, pupils bilaterally equal and reactive Chest: Bronchial breath sounds all over the lung gardiner, rhonchi present more on the right side than left up to mid chest on the right side, equal good air entry bilaterally CVS: S1-S2 regular, no murmurs, no tachycardia, no gallops, no rubs Abdomen: Soft, nontender, no organomegaly, bowel sounds present Neuro: No focal deficits, no facial deformity, moving all 4 limbs, power 5/5 in all limbs Urinary Catheter Management^: Kirkpatrick: Cath Placed During This Visit: no Data : 10/11/19 03:35 10/11/19 03:35 Micro: Microbiology 10/09/19 14:51 Blood Culture - Preliminary Blood NEGATIVE TO DATE 10/09/19 14:48 Blood Culture - Preliminary Blood NEGATIVE TO DATE A&P Assessment and plan (1) Acute on chronic respiratory failure with hypoxia and hypercapnia: Status: Acute Code(s): J96.21 - Acute and chronic respiratory failure with hypoxia; J96.22 - Acute and chronic respiratory failure with hypercapnia (2) Congestive heart failure: Status: Acute Qualifiers: Heart failure chronicity: unspecified Heart failure type: unspecified Qualified Code(s): I50.9 - Heart failure, unspecified Code(s): I50.9 - Heart failure, unspecified (3) COPD (chronic obstructive pulmonary disease): Status: Acute Code(s): J44.9 - Chronic obstructive pulmonary disease, unspecified (4) Sleep apnea: Status: Acute Code(s): G47.30 - Sleep apnea, unspecified (5) Hypertension: Status: Acute Code(s): I10 - Essential (primary) hypertension (6) Diabetes mellitus: Status: Acute Code(s): E11.9 - Type 2 diabetes mellitus without complications (7) Hyperlipidemia: Status: Acute Code(s): E78.5 - Hyperlipidemia, unspecified (8) CAD (coronary artery disease): Status: Acute Code(s): I25.10 - Atherosclerotic heart disease of [place] coronary artery without angina pectoris (9) Morbid obesity: Status: Acute Code(s): E66.01 - Morbid (severe) obesity due to excess calories Additional A&P Information Acute on chronic respiratory failure with hypoxia and hypercapnia: Multifactorial .mostly congestive heart failure of unknown type due to noncompliance with medication along with COPD exacerbation and sleep apnea. BNP grossly elevated to more than 11,000. Last echo from 2019 shows dilated LV with EF of 36% and grade 2 diastolic dysfunction. Patient is overall 5 L negative since admission. Patient developing severe contraction alkalosis today. Will change IV Lasix to 40 mg twice daily. We will give him to 50 mg IV acetazolamide today as patient still needs diuresis. Strict intake and output charting. Daily weights. Patient is noncompliant to CPAP. Saturating 94% on pressure of 8. Saturating well on high flow. Stat ABG in view of contraction alkalosis. We will give a trial of putting patient on nasal cannula keeping saturation over 88%. Will repeat ABG at around 4 PM. Repeat BMP at around 4 PM to review contraction alkalosis. Continue DuoNeb's [id number], budesonide twice daily. Continue with Levaquin already started yesterday. Day 3/5. Will wean off Solu-Medrol to 40 milligrams daily. Confusion: Resolved. Will continue on nicotine patch. Steroids are already being weaned off. Diabetes: Continue with moderate insulin siding scale for now hold home dose of OHA. A1c 7.1. Hypertension: Going into mild TYE. Will decrease the dose of losartan to 50 mg. Patient also takes Imdur to 40 mg at home. Will hold off for now given controlled blood pressures on losartan. h/o CAD: Troponins negative. Continue with home dose of aspirin. Patient is not on statin at home. Will check lipid panel tomorrow morning. DVT ppx: lovenox Code status: DNR Care coordination consult: Patient with most likely need home health services versus SNF placement given severe deconditioning. Physical therapy. We will try to sit patient in chair today. Attestations Medical Necessity Statement*: Needs continued hospitalization for management of acute on chronic respiratory failure due to CHF Time Spent in Patient Care: Greater than 35 minutes (>than 50% of time spent in counselling and/or direct pt care on unit). Coding Level of Care Code Acute Medical Imaging Technician for [facility] Diagnoses Acute on chronic respiratory failure with hypoxia and hypercapnia J96.21; J96.22 Congestive heart failure I50.9 Heart failure chronicity: unspecified Heart failure type: unspecified COPD (chronic obstructive pulmonary disease) J44.9 Sleep apnea G47.30 Hypertension I10 Diabetes mellitus E11.9 Hyperlipidemia E78.5 CAD (coronary artery disease) I25.10 Morbid obesity E66.01
[2019-10-11] MEDS: TRAMadol 50 mg Tablet PO (16:04)
[2019-10-11] MEDS: FUROsemide 40 mg Tablet PO (16:05)
--- NOTE | 2019-10-11 16:39 | PC.PT ---
PT evaluation attempted today, patient declined, requesting tomorrow instead, despite encouragement of his spouse who was present.
[2019-10-11 16:43] LABS: Glucose Point of Care 222 mg/dL (70-110)
[2019-10-11] MEDS: enoxaparin 40 mg/0.4 mL Syringe SUBCUT (18:05)
[2019-10-11 19:22] LABS: Anion Gap 16.9 (5-19); Blood Urea Nitrogen 52 mg/dL (8-23); Calcium 10.5 mg/dL (8.5-10.5); Chloride 86 mmol/L (98-107); Glucose 257 mg/dL (74-106); Osmolality Calculated 307 mOsm/kg (285-295); Potassium 3.9 mmol/L (3.5-5.1); Sodium 145 mmol/L (136-145)
[2019-10-11 19:24] LABS: Carbon Dioxide 46 mmol/L (22-29)
--- NOTE | 2019-10-11 19:45 | PC.NURSE ---
Patient is alert and oriented x4 at this time. Bed alarm has been set. Patient has been show how to use his call light and has it within reach. Patient's oxygen saturation is 95% on 4 L NC at this time. Patient is refusing to wear his Bipap tonight. Will continue to monitor.
[2019-10-11 20:54] LABS: Glucose Point of Care 196 mg/dL (70-110)
[2019-10-12] VITALS (18 sets, daily range): BP systolic 92–149; BP diastolic 47–74; PULSE 56–134; RESP 14–35; TEMP 36.4–36.9; O2SAT 86–98
[2019-10-12] MEDS: ipratropium-albuterol 3 mL Neb INHALATION ×5 (03:43→20:01)
[2019-10-12] MEDS: levoFLOXacin 750 mg Tablet PO (05:05)
[2019-10-12 06:41] LABS: Basophils % 0.1 %; Eosinophils % 0.2 %; Hematocrit 52.3 % (42.0-52.0); Hemoglobin 15.9 g/dL (11.7-16.6); Lymphocytes # 1.4 10^3/uL (0.8-4.8); Lymphocytes % 16.5 %; Mean Corpuscular HGB Conc 30.4 g/dL (30.0-36.0); Mean Corpuscular Hemoglobin 30.9 pg (28.0-34.0); Mean Corpuscular Volume 101.8 fL (80-94); Mean Platelet Volume 10.1 fL (7.4-10.4); Monocytes # 1.1 10^3/uL (0.2-0.9); Monocytes % 13.3 %; Neutrophils # 5.8 10^3/uL (1.8-7.7); Neutrophils % 69.7 %; Nucleated Red Blood Cells % 0 %; Platelet Count 211 10^3/cmm (130-400); Red Blood Count 5.14 10^6/uL (4.1-5.3); Red Cell Distribution Width 13.2 % (12.1-15.1); White Blood Count 8.3 10^3/uL (4.0-10.0)
[2019-10-12 06:42] LABS: Glucose Point of Care 163 mg/dL (70-110)
[2019-10-12 06:55] LABS: Anion Gap 14.8 (5-19); Blood Urea Nitrogen 51 mg/dL (8-23); Calcium 9.6 mg/dL (8.5-10.5); Chloride 87 mmol/L (98-107); Glucose 192 mg/dL (74-106); Osmolality Calculated 297 mOsm/kg (285-295); Potassium 3.8 mmol/L (3.5-5.1); Sodium 142 mmol/L (136-145)
[2019-10-12 07:08] LABS: Carbon Dioxide 44 mmol/L (22-29)
[2019-10-12] MEDS: pantoprazole DR 40 mg Tablet PO (08:30)
[2019-10-12] MEDS: losartan 50 mg Tablet PO (08:30)
[2019-10-12] MEDS: FUROsemide 40 mg Tablet PO (08:30)
[2019-10-12] MEDS: aspirin 325 mg Tablet PO (08:30)
[2019-10-12] MEDS: nicotine 21 mg Patch 1 PATCH TRANSDERMA (08:31)
--- NOTE | 2019-10-12 10:53 | P.DS_ITS ---
Discharge Providers Date of Admission: 10/09/19 16:42 Date of Discharge: 10/12/19 Attending Provider at Admission: Misa Joyce MD Attending Provider at Discharge: Eric Guerrero MD Diagnoses at Discharge Discharge Diagnosis (1) Acute on chronic respiratory failure with hypoxia and hypercapnia: Status: Acute (2) Congestive heart failure: Status: Acute Qualifiers: Heart failure chronicity: unspecified Heart failure type: unspecified Qualified Code(s): I50.9 - Heart failure, unspecified (3) COPD (chronic obstructive pulmonary disease): Status: Acute (4) Sleep apnea: Status: Acute (5) Hypertension: Status: Acute (6) Diabetes mellitus: Status: Acute (7) Hyperlipidemia: Status: Acute (8) CAD (coronary artery disease): Status: Acute (9) Morbid obesity: Status: Acute Reason for Visit Reason for Visit: Reason For Visit: chf exacerbation;pneumonia Hospital Course Discharge Summary: Dar Ellison is a 74 year old male with PMH 02 dependent chronic obstructive pulmonary disease(4L at home), chronic diastolic congestive heart failure on lasix, obstructive sleep apnea; he refuses to wear CPAP, coronary artery disease, morbid obesity, type II diabetes mellitus, hypertension, hyperlipidemia, abdominal aortic aneurysm repair and Prinzmetal's angina. He presented with complaints of worsening exertional dyspnea over the past 6 to 7 days. He states he got more more short of breath. Of note he has not been taking his Lasix over the past 2 to 3 days because it gave him muscle cramps. has been taking his nebulizations and oxygen at home. Patient was admitted to the cardiac stepdown unit and started on IV diuresis for congestive heart failure along with ohdevq-dbt-fpjji nebulizations and IV steroids for COPD exacerbation. His imaging and blood work were negative for any kind of infiltrate and hence pneumonia. Patient required to be on BiPAP ventilation and high flow oxygen supplementation. Patient responded okay to the treatment and is overall 6 L negative since admission. His oxygen requirement continues to come down during his hospitalization and at present he needs 7 L nasal cannula oxygen supplementation to keep his saturation over 90%. Patient was advised to use BiPAP overnight and possible CPAP at home but he continues to decline because he feels claustrophobic. As he was not able to use CPAP his progression and improvement has been slow. His hospitalization was complicated by frequent episodes of bradycardia because of which his home dose of Lopressor has been decreased. His blood pressures on aggressive diuresis has also been borderline low so his home medication of RONI inhibitor has also been decreased. Given severe deconditioning patient advised to go to SNF for further rehabilitation but he declined after multiple attempts so is being discharged home with home health with new baseline oxygen supplementation requirement. Physical Exam Narrative: EXAM NARRATIVE: General: No acute distress, AO x 2, to self and place. Confused. HEENT: PERRLA, pupils bilaterally equal and reactive Chest: Bronchial breath sounds all over the lung garidner, rhonchi present more on the right side than left up to mid chest on the right side, equal good air entry bilaterally CVS: S1-S2 regular, no murmurs, no tachycardia, no gallops, no rubs Abdomen: Soft, nontender, no organomegaly, bowel sounds present Neuro: No focal deficits, no facial deformity, moving all 4 limbs, power 5/5 in all limbs Urinary Catheter Management^: Kirkpatrick: Cath Placed During This Visit: no Discharge Data Data Completed and Pending: Completed Studies During Hospitalization Category Date Time Status XR chest 1V tony ble 18075 Urgent Exams 10/09/19 14:34 Completed Pending at discharge Category Date Time Status Blood Culture Sta t Lab 10/09/19 14:51 Results Labs from last 24 hours 10/12/19 10/12/19 10/12/19 06:26 06:10 06:10 WBC 8.3 RBC 5.14 Hgb 15.9 Hct 52.3 H MCV 101.8 H MCH 30.9 MCHC 30.4 RDW 13.2 Plt Count 211 MPV 10.1 Neut % (Auto) 69.7 Lymph % (Auto) 16.5 Hitchcock % (Auto) 13.3 Eos % (Auto) 0.2 Baso % (Auto) 0.1 Neut # (Auto) 5.8 Lymph # (Auto) 1.4 Hitchcock # (Auto) 1.1 H Eos # (Auto) 0.0 Baso # (Auto) 0.0 Nucleated RBC % (a uto) 0 Nucleated RBCs # 0.0 Specimen Type Sample Site ABG pH ABG pCO2 ABG pO2 ABG HCO3 ABG Base Excess Eduardo Test Hematocrit O2 Delivery Device O2 Liters/Min FiO2 Family Consumer Science Teacher ID Sodium 142 Potassium 3.8 Chloride 87 L Carbon Dioxide 44 H* Anion Gap 14.8 BUN 51 H Creatinine 1.5 H Glucose 192 H POC Glucose 163 Calculated Osmolal ity 297 H Calcium 9.6 10/11/19 10/11/19 10/11/19 20:50 16:50 16:33 WBC RBC Hgb Hct MCV MCH MCHC RDW Plt Count MPV Neut % (Auto) Lymph % (Auto) Hitchcock % (Auto) Eos % (Auto) Baso % (Auto) Neut # (Auto) Lymph # (Auto) Hitchcock # (Auto) Eos # (Auto) Baso # (Auto) Nucleated RBC % (a uto) Nucleated RBCs # Specimen Type Sample Site ABG pH ABG pCO2 ABG pO2 ABG HCO3 ABG Base Excess Eduardo Test Hematocrit O2 Delivery Device O2 Liters/Min FiO2 Family Consumer Science Teacher ID Sodium 145 Potassium 3.9 Chloride 86 L Carbon Dioxide 46 H* Anion Gap 16.9 BUN 52 H Creatinine 1.5 H Glucose 257 H POC Glucose 196 222 Calculated Osmolal ity 307 H Calcium 10.5 10/11/19 10/11/19 15:36 11:24 WBC RBC Hgb Hct MCV MCH MCHC RDW Plt Count MPV Neut % (Auto) Lymph % (Auto) Hitchcock % (Auto) Eos % (Auto) Baso % (Auto) Neut # (Auto) Lymph # (Auto) Hitchcock # (Auto) Eos # (Auto) Baso # (Auto) Nucleated RBC % (a uto) Nucleated RBCs # Specimen Type Arterial Sample Site Radial, left ABG pH 7.43 ABG pCO2 73.0 H* ABG pO2 57.5 L ABG HCO3 48.1 H ABG Base Excess 18.6 H Eduardo Test Pos Hematocrit 50.1 O2 Delivery Device Nc O2 Liters/Min 5.0 FiO2 40.0 Family Consumer Science Teacher ID ed Sodium Potassium Chloride Carbon Dioxide Anion Gap BUN Creatinine Glucose POC Glucose 200 Calculated Osmolal ity Calcium Vitals: Last Vital Signs Temp 98.0 F 10/12/19 07:29 Pulse 101 H 10/12/19 08:22 Resp 18 10/12/19 08:22 BP 128/51 10/12/19 08:30 Pulse Ox 97 10/12/19 08:22 Discharge Plan Discharge Patient Disposition: Home Health Service Condition: Stable Prescriptions: New pantoprazole 40 mg Tablet,Delayed Release (Dr/Ec) 40 mg PO DAILY Qty: 15 RF: 0 levofloxacin 750 mg Tablet 750 mg PO DAILY@0600 Qty: 2 RF: 0 prednisone 10 mg tablet See Rx Instructions .ROUTE .COMPLEX Qty: 100 RF: 0 Continued aspirin 325 mg Tablet 325 mg PO DAILY RF: 0 glyburide 2.5 mg Tablet See Rx Instructions .ROUTE .COMPLEX RF: 0 nitroglycerin [Nitrostat] 0.4 mg Tablet, Sublingual 0.4 mg SUBLINGUAL Q5M PRN (Reason: Chest Pain) RF: 0 metoprolol tartrate 25 mg Tablet 25 mg PO BID RF: 0 Changed Lasix 40 mg Tablet 60 mg PO BIDPC Qty: 0 RF: 0 tramadol 50 mg Tablet 50 mg PO TID PRN (Reason: pain) Qty: 0 RF: 0 irbesartan 300 mg Tablet 150 mg PO DAILY Qty: 0 RF: 0 Discontinued isosorbide mononitrate 120 mg Tablet Extended Release 24 Hr 240 mg PO DAILY RF: 0 Discharge Orders: Discharge Order (Routine); Ordered 10/12/19 Ordered By: Eric Guerrero Other Ambulatory Orders: Basic Metabolic Panel (Routine) Timeframe: 1 Week Facility: - Location: Lab - Main Lab Ordered By: Eric Guerrero DME: Oxygen (Order) Location: None Selected Ordered By: Eric Guerrero Referrals: [facility] [Outside] [facility] [Outside] (Your information has been faxed to [facility] to see if they can accept you as a patient and provide home health services. If you do not hear from them in 1-2 days, you may call their office and ask for Annmarie.) Discharge Diet: Cardiac and Low Salt Discharge Activity: Resume usual activity Patient Instructions: COPD, Prednisone (By mouth), Levofloxacin (By mouth), Pantoprazole (By mouth), Heart Failure (DC), Coronary Artery Disease (DC), Sleep Apnea Syndrome (DC), Diabetes Mellitus Type 2 in Adults (DC), Obesity (DC), Hypertension (DC), Hyperlipidemia (DC), CHF Stoplight, COPD Stoplight Discharge Attestations Time Spent in Discharge Care*: greater than 30 min Status at Discharge: Cognitive status at discharge: cognitively intact , Behavioral status at discharge: cooperative , Functional status at discharge: independent ambulation Overall status at discharge: patient is progressing back to baseline Quality Metrics Clinical Quality Measures During this hospital stay, did patient experience: None Coding Level of Care Code Acute Manager Inventory Management for [facility] Fwd Diagnoses Acute on chronic respiratory failure with hypoxia and hypercapnia J96.21; J96.22 Congestive heart failure I50.9 Heart failure chronicity: unspecified Heart failure type: unspecified COPD (chronic obstructive pulmonary disease) J44.9 Sleep apnea G47.30 Hypertension I10 Diabetes mellitus E11.9 Hyperlipidemia E78.5 CAD (coronary artery disease) I25.10 Morbid obesity E66.01
[2019-10-12 11:28] LABS: Glucose Point of Care 311 mg/dL (70-110)
--- NOTE | 2019-10-12 12:00 | PC.SOCIAL ---
IMM Page 2 of IMM explained to and signed by patient's daughter in room. Patient/daughter verbalize understanding. Initialed, dated, and timed and placed in chart. Copy provided to patient.
--- NOTE | 2019-10-12 14:48 | PC.NURSE ---
Entered room to discuss discharge and educate patient and family about discharge patient immediately asked this nurse if he could smoke when he got home, this nurse educated patient on the solis need to not smoke and the effects and dangers of smoking with the high flow oxygen patient expressed verbalized understanding however he was not happy with the information he was getting from this nurse while in room patient set up in side of bed and HR became elevated, patient sustaining hr 120-[address] harris with [facility] in patient condition [facility] given HOLD discharge give metoprolol 5 mg IVP now then resume home dose 30 min later if blood pressure remains stable then ok to give 2100 dose of metoprolol if blood pressure remains stable
[2019-10-12] MEDS: metoprolol tartrate 1 mg/1 mL SDV 5 mL 5 MG IV (15:05)
[2019-10-12] MEDS: FUROsemide 10 mg/mL SDV 4mL 40 MG IVP (15:39)
[2019-10-12 16:20] LABS: Glucose Point of Care 295 mg/dL (70-110)
[2019-10-12] MEDS: TRAMadol 50 mg Tablet PO (17:00)
--- NOTE | 2019-10-12 17:43 | PC.NURSE ---
contacted Dr. harris for placement of edwards due to patient urinary retention and decompensation in status orders obtained to place edwards
[2019-10-12] MEDS: enoxaparin 40 mg/0.4 mL Syringe SUBCUT (18:15)
[2019-10-12] MEDS: metoprolol tartrate 25 mg Tablet PO (18:15)
[2019-10-12 21:33] LABS: Glucose Point of Care 273 mg/dL (70-110)
--- NOTE | 2019-10-12 22:22 | PC.NURSE ---
Patient's heart rate is running 40s-60s A-fib. Cardizem drip turned off. Will continue to monitor.
[2019-10-13] VITALS (16 sets, daily range): BP systolic 104–130; BP diastolic 44–74; PULSE 77–115; RESP 18–35; TEMP 36.3–36.8; O2SAT 90–100
[2019-10-13] MEDS: ipratropium-albuterol 3 mL Neb INHALATION ×5 (00:25→20:47)
[2019-10-13] MEDS: levoFLOXacin 750 mg Tablet PO (05:15)
--- NOTE | 2019-10-13 05:15 | PC.NURSE ---
Patient was offered a bed bath and stated not now, maybe later.
--- NOTE | 2019-10-13 08:33 | XR_ITS ---
WS: [id number] CHEST XRAY TECHNIQUE: Portable chest. CLINICAL INFORMATION: chf COMPARISON: October 09, 2019 FINDINGS: Heart: Cardiomegaly. Tortuous thoracic aorta. Lungs: Small right pleural effusion. Trace left pleural fluid. CHF has improved since October 09 0. Bones: Normal visualized bony structures. XR/XR chest 1V portable [id number] IMPRESSION: CHF improved since October 09, 2019. Small bilateral pleural effusions.
[2019-10-13] MEDS: pantoprazole DR 40 mg Tablet PO (09:17)
[2019-10-13] MEDS: metoprolol tartrate 25 mg Tablet PO (09:17)
[2019-10-13] MEDS: FUROsemide 10 mg/mL SDV 4mL 40 MG IVP (09:20)
[2019-10-13] MEDS: nicotine 21 mg Patch 1 PATCH TRANSDERMA (09:20)
[2019-10-13] MEDS: aspirin 325 mg Tablet PO (09:20)
[2019-10-13 10:31] LABS: Basophils % 0.1 %; Eosinophils % 0.5 %; Hematocrit 51.9 % (42.0-52.0); Hemoglobin 15.9 g/dL (11.7-16.6); Lymphocytes # 1.1 10^3/uL (0.8-4.8); Lymphocytes % 14.4 %; Mean Corpuscular HGB Conc 30.6 g/dL (30.0-36.0); Mean Corpuscular Hemoglobin 30.2 pg (28.0-34.0); Mean Corpuscular Volume 98.7 fL (80-94); Mean Platelet Volume 10.1 fL (7.4-10.4); Monocytes # 0.9 10^3/uL (0.2-0.9); Monocytes % 11.7 %; Neutrophils # 5.3 10^3/uL (1.8-7.7); Neutrophils % 72.9 %; Nucleated Red Blood Cells % 0 %; Platelet Count 194 10^3/cmm (130-400); Red Blood Count 5.26 10^6/uL (4.1-5.3); Red Cell Distribution Width 13.1 % (12.1-15.1); White Blood Count 7.3 10^3/uL (4.0-10.0)
[2019-10-13 10:49] LABS: Alanine Aminotransferase 21 U/L (0-41); Albumin Level 3.7 g/dL (3.5-5.2); Alkaline Phosphatase 78 IU/L (40-130); Anion Gap 17.4 (5-19); Blood Urea Nitrogen 69 mg/dL (8-23); Calcium 9.3 mg/dL (8.5-10.5); Chloride 88 mmol/L (98-107); Globulin 3.7 g/dL (1.3-4.6); Glucose 246 mg/dL (74-106); Potassium 3.4 mmol/L (3.5-5.1); Sodium 143 mmol/L (136-145); Total Bilirubin 0.5 mg/dL (0.15-1.2); Total Protein 7.4 g/dL (6.6-8.7)
[2019-10-13 10:59] LABS: Aspartate Amino Transferase 23 U/L (0-40); Carbon Dioxide 41 mmol/L (22-29)
[2019-10-13 12:08] LABS: Glucose Point of Care 217 mg/dL (70-110)
[2019-10-13] MEDS: TRAMadol 50 mg Tablet PO (12:41)
--- NOTE | 2019-10-13 14:21 | PM.PN ---
Subjective Subjective: Interval history: No acute events overnight. Last 24 hours patient was discharged but the discharge had to be canceled as just prior to the discharge patient went into atrial fibrillation with rapid ventricular response for which she was started on Cardizem drip. Cardizem drip was discontinued overnight because his heart rate has improved and went back into 80s to 90s beats per minute. On evaluation this morning patient is lying comfortably in bed states his shortness of breath is improved. His heart rate is fluctuating between 90 to 110 bpm. He is saturating around 92% at 5 L oxygen mask. Vitals/I&O/Wt Last Vital Signs Temp 97.4 F L 10/13/19 11:37 Pulse 115 H 10/13/19 11:37 Resp 21 H 10/13/19 11:37 BP 104/66 10/13/19 11:37 Pulse Ox 90 10/13/19 11:37 10/12/19 10/13/19 10/13/19 22:59 06:59 14:59 Intake Total 165.75 / 645.75 500 / 1145.75 360 / 360 Output Total 800 / 800 Balance 165.75 / 645.75 -300 / 345.75 360 / 360 Weight last 48 hrs Weight 106.141 kg Physical Exam Narrative: EXAM NARRATIVE: General: No acute distress, AO x 2, to self and place. Confused. HEENT: PERRLA, pupils bilaterally equal and reactive Chest: Bronchial breath sounds all over the lung gardiner, rhonchi present more on the right side than left up to mid chest on the right side, equal good air entry bilaterally CVS: S1-S2 regular, no murmurs, no tachycardia, no gallops, no rubs Abdomen: Soft, nontender, no organomegaly, bowel sounds present Neuro: No focal deficits, no facial deformity, moving all 4 limbs, power 5/5 in all limbs Urinary Catheter Management^: Kirkpatrick: Cath Placed During This Visit: no Data : 10/13/19 10:20 10/13/19 10:20 A&P Assessment and plan (1) Acute on chronic respiratory failure with hypoxia and hypercapnia: Status: Acute Code(s): J96.21 - Acute and chronic respiratory failure with hypoxia; J96.22 - Acute and chronic respiratory failure with hypercapnia (2) Congestive heart failure: Status: Acute Qualifiers: Heart failure chronicity: unspecified Heart failure type: unspecified Qualified Code(s): I50.9 - Heart failure, unspecified Code(s): I50.9 - Heart failure, unspecified (3) COPD (chronic obstructive pulmonary disease): Status: Acute Code(s): J44.9 - Chronic obstructive pulmonary disease, unspecified (4) Sleep apnea: Status: Acute Code(s): G47.30 - Sleep apnea, unspecified (5) Hypertension: Status: Acute Code(s): I10 - Essential (primary) hypertension (6) Diabetes mellitus: Status: Acute Code(s): E11.9 - Type 2 diabetes mellitus without complications (7) Hyperlipidemia: Status: Acute Code(s): E78.5 - Hyperlipidemia, unspecified (8) CAD (coronary artery disease): Status: Acute Code(s): I25.10 - Atherosclerotic heart disease of [place] coronary artery without angina pectoris (9) Morbid obesity: Status: Acute Code(s): E66.01 - Morbid (severe) obesity due to excess calories Additional A&P Information Acute on chronic respiratory failure with hypoxia and hypercapnia: Most likely a combination of congestive heart failure and obstructive sleep apnea. Last echo from 2019 shows dilated LV with EF of 36% and grade 2 diastolic dysfunction. Patient is overall 5 L negative since admission. Patient is still requiring higher than usual oxygen supplementation. Check ABG. Most likely desaturation is not correct he keeps fidgeting with the saturation probe. Chest x-ray for evaluation of CHF. Will increase the oral Lasix to 60 mg twice daily. Patient is still in contraction alkalosis but overall is improving. CO2 on BMP 41 today. We will give him 1 more dose of IV acetazolamide to 50 mg today. Strict intake and output charting. Daily weights. Fluid restriction to 1500 cc/day. Patient is noncompliant to CPAP. Continue DuoNeb's [id number], budesonide twice daily. Last dose of Levaquin today. Continue with Solu-Medrol to 40 milligrams daily. TYE: Resolved. Baseline creatinine seems to be around 1.5. Creatinine 1.4 today. Contraction alkalosis: Most likely a combination of aggressive IV diuresis and COPD. Treatment as above. Diabetes: Continue with moderate insulin siding scale for now hold home dose of OHA. A1c 7.1. Hypertension: Going into mild TYE. Will decrease the dose of losartan to 50 mg. Patient also takes Imdur to 40 mg at home. Will hold off for now given controlled blood pressures on losartan. h/o CAD: Troponins negative. Continue with home dose of aspirin. Patient is not on statin at home. Will check lipid panel tomorrow morning. DVT ppx: lovenox Code status: DNR Care coordination consult: Patient needs SNF placement for severe deconditioning which is leading him to go into A. fib with rapid ventricular response causing him to go recurrent CHF episodes. Patient continues to deny SNF placement even though family is agreeable. We will continue to discuss with the patient. Home health services have already been arranged for. Physical therapy. We will try to sit patient in chair today. Attestations Medical Necessity Statement*: Needs continued hospitalization for management of CHF and atrial fibrillation with rapid ventricular response. Time Spent in Patient Care: 16 - 35 minutes Coding Level of Care Code Acute Clinical Faculty for Raysa Mcqueen Diagnoses Acute on chronic respiratory failure with hypoxia and hypercapnia J96.21; J96.22 Congestive heart failure I50.9 Heart failure chronicity: unspecified Heart failure type: unspecified COPD (chronic obstructive pulmonary disease) J44.9 Sleep apnea G47.30 Hypertension I10 Diabetes mellitus E11.9 Hyperlipidemia E78.5 CAD (coronary artery disease) I25.10 Morbid obesity E66.01
[2019-10-13 14:41] LABS: ABG PH Result 7.38 (7.35-7.45); Base Excess ABG 17.6 mmol/L (-2.0-2.0); Blood Gas Operator Identificat amh; Blood Gas Sample Site Brachial, left; Blood Gas Sample Type Arterial; HCO3 ABG 48.1 mmol/L (22-26); Oxygen Device OXY MASK; PO2 ABG 56.1 mmHg (80.0-100.0)
[2019-10-13 14:42] LABS: ABG PCO2 80.5 mmHg (35-45)
[2019-10-13] MEDS: FUROsemide 40 mg Tablet 60 MG PO (15:10)
[2019-10-13 16:59] LABS: Glucose Point of Care 263 mg/dL (70-110)
[2019-10-13] MEDS: enoxaparin 40 mg/0.4 mL Syringe SUBCUT (17:49)
[2019-10-13] MEDS: metoprolol tartrate 25 mg Tablet 50 MG PO (17:49)
[2019-10-13 18:14] LABS: ABG PCO2 90.1 mmHg (35-45); ABG PH Result 7.35 (7.35-7.45); Arterial Blood Gas Hematocrit 49.5 % (42-52); Base Excess ABG 17.6 mmol/L (-2.0-2.0); Blood Gas Allen Test Pos; Blood Gas Sample Site Radial, left; Blood Gas Sample Type Arterial; HCO3 ABG 49.2 mmol/L (22-26); Oxygen Device BIPAP; PO2 ABG 96.9 mmHg (80.0-100.0)
[2019-10-13 21:42] LABS: Glucose Point of Care 187 mg/dL (70-110)
[2019-10-14] VITALS (16 sets, daily range): BP systolic 95–142; BP diastolic 43–71; PULSE 66–90; RESP 17–35; TEMP 36.4–37.3; O2SAT 76–95
[2019-10-14] MEDS: ipratropium-albuterol 3 mL Neb INHALATION ×4 (02:32→20:54)
[2019-10-14 04:15] LABS: Basophils % 0.1 %; Eosinophils % 0.1 %; Hematocrit 50.5 % (42.0-52.0); Hemoglobin 15.3 g/dL (11.7-16.6); Lymphocytes # 1.1 10^3/uL (0.8-4.8); Lymphocytes % 14.3 %; Mean Corpuscular HGB Conc 30.3 g/dL (30.0-36.0); Mean Corpuscular Hemoglobin 30.1 pg (28.0-34.0); Mean Corpuscular Volume 99.4 fL (80-94); Mean Platelet Volume 10.8 fL (7.4-10.4); Monocytes # 0.9 10^3/uL (0.2-0.9); Monocytes % 11.3 %; Neutrophils # 5.6 10^3/uL (1.8-7.7); Neutrophils % 73.7 %; Nucleated Red Blood Cells % 0 %; Platelet Count 226 10^3/cmm (130-400); Red Blood Count 5.08 10^6/uL (4.1-5.3); Red Cell Distribution Width 12.9 % (12.1-15.1); White Blood Count 7.6 10^3/uL (4.0-10.0)
[2019-10-14 04:35] LABS: Alanine Aminotransferase 28 U/L (0-41); Albumin Level 3.4 g/dL (3.5-5.2); Alkaline Phosphatase 72 IU/L (40-130); Anion Gap 11.7 (5-19); Blood Urea Nitrogen 59 mg/dL (8-23); Calcium 9.4 mg/dL (8.5-10.5); Chloride 91 mmol/L (98-107); Globulin 3.7 g/dL (1.3-4.6); Glucose 103 mg/dL (74-106); Potassium 3.7 mmol/L (3.5-5.1); Sodium 145 mmol/L (136-145); Total Bilirubin 0.5 mg/dL (0.15-1.2); Total Protein 7.1 g/dL (6.6-8.7)
[2019-10-14 04:56] LABS: Aspartate Amino Transferase 25 U/L (0-40); Carbon Dioxide 46 mmol/L (22-29)
[2019-10-14 07:46] LABS: ABG PH Result 7.34 (7.35-7.45); Arterial Blood Gas Hematocrit 51.7 % (42-52); Base Excess ABG 18.7 mmol/L (-2.0-2.0); Blood Gas Operator Identificat glc; Blood Gas Sample Site Brachial, right; Blood Gas Sample Type Arterial; HCO3 ABG 51.1 mmol/L (22-26); Oxygen Device OXY MASK; PO2 ABG 53.3 mmHg (80.0-100.0)
[2019-10-14 07:47] LABS: ABG PCO2 93.8 mmHg (35-45)
[2019-10-14 07:53] LABS: Glucose Point of Care 116 mg/dL (70-110)
[2019-10-14] MEDS: nicotine 21 mg Patch 1 PATCH TRANSDERMA (09:31)
[2019-10-14] MEDS: aspirin 325 mg Tablet PO (09:32)
[2019-10-14] MEDS: pantoprazole DR 40 mg Tablet PO (09:32)
[2019-10-14] MEDS: losartan 50 mg Tablet PO (09:32)
[2019-10-14] MEDS: metoprolol tartrate 25 mg Tablet 50 MG PO ×2 (09:32→17:51)
[2019-10-14 11:42] LABS: Glucose Point of Care 220 mg/dL (70-110)
--- NOTE | 2019-10-14 12:53 | PC.SOCIAL ---
IMM update Pg 2 of IMM was updated with patient and his and a copy was provided. They verbalized understanding and had no questions. Initialed, dated, and timed copy in chart.
--- NOTE | 2019-10-14 15:49 | PM.PN ---
Subjective Subjective: Interval history: Last 24 hours patient required to be on BiPAP yesterday evening because of somnolence. ABG showed hypercapnia. This morning patient is awake oriented x3 eating his breakfast by himself on examination. Morning's ABG also shows CO2 of 93 but patient seems well compensated. On evaluation patient is on nasal cannula 5 L saturating 90%. Denies of having any cough shortness of breath, nausea, vomiting. On further interviewing patient states he would want to be hospice. Patient's family is at bedside as well and to confer. Patient was educated regarding meaning of hospice care and they would want lower down hospice route. Medications: Medication Review Details: Med rec not completely done Vitals/I&O/Wt Last Vital Signs Temp 97.6 F 10/14/19 15:33 Pulse 84 10/14/19 15:33 Resp 21 H 10/14/19 15:33 BP 112/59 10/14/19 15:33 Pulse Ox 90 10/14/19 15:33 10/14/19 10/14/19 10/14/19 06:59 14:59 22:59 Intake Total 360 / 360 Output Total 1000 / 1800 500 / 500 Balance -1000 / -1440 -140 / -140 Weight last 48 hrs Weight 106.05 kg Physical Exam Narrative: EXAM NARRATIVE: General: No acute distress, AO x 2, to self and place. Confused. HEENT: PERRLA, pupils bilaterally equal and reactive Chest: Bronchial breath sounds all over the lung gardiner, improved than before, rhonchi present more on the right side than left , equal good air entry bilaterally CVS: S1-S2 regular, no murmurs, no tachycardia, no gallops, no rubs Abdomen: Soft, nontender, no organomegaly, bowel sounds present Neuro: No focal deficits, no facial deformity, moving all 4 limbs, power 5/5 in all limbs Urinary Catheter Management^: Kirkpatrick: Cath Placed During This Visit: no Data : 10/14/19 03:22 10/14/19 03:22 Micro: Microbiology 10/09/19 14:51 Blood Culture - Final Blood NO GROWTH AFTER 5 DAYS 10/09/19 14:48 Blood Culture - Final Blood NO GROWTH AFTER 5 DAYS A&P Assessment and plan (1) Acute on chronic respiratory failure with hypoxia and hypercapnia: Status: Acute Code(s): J96.21 - Acute and chronic respiratory failure with hypoxia; J96.22 - Acute and chronic respiratory failure with hypercapnia (2) Congestive heart failure: Status: Acute Qualifiers: Heart failure chronicity: unspecified Heart failure type: unspecified Qualified Code(s): I50.9 - Heart failure, unspecified Code(s): I50.9 - Heart failure, unspecified (3) COPD (chronic obstructive pulmonary disease): Status: Acute Code(s): J44.9 - Chronic obstructive pulmonary disease, unspecified (4) Sleep apnea: Status: Acute Code(s): G47.30 - Sleep apnea, unspecified (5) Hypertension: Status: Acute Code(s): I10 - Essential (primary) hypertension (6) Diabetes mellitus: Status: Acute Code(s): E11.9 - Type 2 diabetes mellitus without complications (7) Hyperlipidemia: Status: Acute Code(s): E78.5 - Hyperlipidemia, unspecified (8) CAD (coronary artery disease): Status: Acute Code(s): I25.10 - Atherosclerotic heart disease of [place] coronary artery without angina pectoris (9) Morbid obesity: Status: Acute Code(s): E66.01 - Morbid (severe) obesity due to excess calories Additional A&P Information Acute on chronic respiratory failure with hypoxia and hypercapnia: Most likely a combination of congestive heart failure and obstructive sleep apnea. Last echo from 2019 shows dilated LV with EF of 36% and grade 2 diastolic dysfunction. Patient is overall 6.4 L negative since admission. Patient is requiring 5 L oxygen supplementation to keep saturation 90%. We will continue to titrate keeping saturation around 88 to 90%. Continue Lasix at 60 mg twice daily. We will hold off on any further acetazolamide. Strict intake and output charting. Daily weights. Fluid restriction to 1500 cc/day. Patient is noncompliant to CPAP. Have had multiple discussions trying to rehab/pre vocational counselor and educate him for using of CPAP/BiPAP. Continue DuoNeb's [id number], budesonide twice daily. Finish Levaquin course. Continue with Solu-Medrol to 40 milligrams daily. Will wean off slowly on discharge. TYE: Resolved. Baseline creatinine seems to be around 1.5. Creatinine 1.4 today. Contraction alkalosis: Most likely a combination of aggressive IV diuresis and severe COPD leading to hypercapnia. Treatment as above. Diabetes: Continue with moderate insulin siding scale for now hold home dose of OHA. A1c 7.1. Hypertension: Going into mild TYE. Will decrease the dose of losartan to 50 mg. Patient also takes Imdur 240 mg at home. Will hold off for now given controlled blood pressures on losartan. h/o CAD: Troponins negative. Continue with home dose of aspirin. Patient is not on statin at home. Will check lipid panel tomorrow morning. DVT ppx: lovenox Code status: Hospice/DNR Patient and family today discussed regarding hospice care. Patient and family were both counseled and educated in detail regarding the meaning of hospice care. They would both want to go down the route of hospice care. Patient is appropriate for hospice care given advanced COPD and CHF along with patient requiring to be on BiPAP 24 x 7 to which he is not compliant. Patient has been seen by hospice care and has been accepted. Patient is to follow-up with Dr. Thomas as an outpatient for hospice. Physical therapy. We will try to sit patient in chair today. Attestations Medical Necessity Statement*: Needs further hospitalization for management of acute on chronic hypercapnic respiratory failure because of severe COPD while hospice care is being arranged. Time Spent in Patient Care: Greater than 35 minutes (>than 50% of time spent in counselling and/or direct pt care on unit). Coding Level of Care Code Acute [employer] for Raysa Mcqueen Diagnoses Acute on chronic respiratory failure with hypoxia and hypercapnia J96.21; J96.22 Congestive heart failure I50.9 Heart failure chronicity: unspecified Heart failure type: unspecified COPD (chronic obstructive pulmonary disease) J44.9 Sleep apnea G47.30 Hypertension I10 Diabetes mellitus E11.9 Hyperlipidemia E78.5 CAD (coronary artery disease) I25.10 Morbid obesity E66.01
[2019-10-14 15:51] LABS: Glucose Point of Care 275 mg/dL (70-110)
[2019-10-14] MEDS: acetaminophen 325 mg Tablet 650 MG PO (16:12)
[2019-10-14] MEDS: enoxaparin 40 mg/0.4 mL Syringe SUBCUT (17:51)
[2019-10-14] MEDS: FUROsemide 40 mg Tablet 60 MG PO (17:51)
[2019-10-14 20:07] LABS: Glucose Point of Care 174 mg/dL (70-110)
--- NOTE | 2019-10-14 21:11 | PC.RESP ---
Addendum entered by Steven Ceballos, RT 10/14/19 21:13: Pt going home on hospice tomorrow and is now a DNR. Original Note: PT is 76% on 6 lpm nc. O2 sat aquired via forehead O2 prob. O2 increased to 10 lpm nc. TREVOR Shah notified. Provider notified.
[2019-10-15] VITALS (7 sets, daily range): BP systolic 105–117; BP diastolic 47–62; PULSE 63–88; RESP 18–25; TEMP 36.4–36.9; O2SAT 78–90; BMI 29.5
[2019-10-15] MEDS: acetaminophen 325 mg Tablet 650 MG PO ×2 (01:07→09:37)
[2019-10-15 05:10] LABS: Basophils % 0.1 %; Eosinophils % 0.2 %; Hematocrit 51.2 % (42.0-52.0); Hemoglobin 15.8 g/dL (11.7-16.6); Lymphocytes # 1.5 10^3/uL (0.8-4.8); Lymphocytes % 14.1 %; Mean Corpuscular HGB Conc 30.9 g/dL (30.0-36.0); Mean Corpuscular Hemoglobin 30.9 pg (28.0-34.0); Mean Corpuscular Volume 100.2 fL (80-94); Mean Platelet Volume 10.8 fL (7.4-10.4); Monocytes # 0.9 10^3/uL (0.2-0.9); Monocytes % 8.7 %; Neutrophils # 8.1 10^3/uL (1.8-7.7); Neutrophils % 76.6 %; Nucleated Red Blood Cells % 0 %; Platelet Count 218 10^3/cmm (130-400); Red Blood Count 5.11 10^6/uL (4.1-5.3); Red Cell Distribution Width 13.2 % (12.1-15.1); White Blood Count 10.5 10^3/uL (4.0-10.0)
[2019-10-15 05:30] LABS: Alanine Aminotransferase 26 U/L (0-41); Albumin Level 3.4 g/dL (3.5-5.2); Alkaline Phosphatase 72 IU/L (40-130); Anion Gap 16.6 (5-19); Aspartate Amino Transferase 17 U/L (0-40); Blood Urea Nitrogen 81 mg/dL (8-23); Calcium 9.5 mg/dL (8.5-10.5); Chloride 89 mmol/L (98-107); Globulin 3.5 g/dL (1.3-4.6); Glucose 207 mg/dL (74-106); Potassium 3.6 mmol/L (3.5-5.1); Sodium 144 mmol/L (136-145); Total Bilirubin 0.6 mg/dL (0.15-1.2); Total Protein 6.9 g/dL (6.6-8.7)
[2019-10-15 05:31] LABS: Carbon Dioxide 42 mmol/L (22-29)
[2019-10-15 07:44] LABS: Glucose Point of Care 168 mg/dL (70-110)
[2019-10-15] MEDS: ipratropium-albuterol 3 mL Neb INHALATION (08:41)
[2019-10-15] MEDS: metoprolol tartrate 25 mg Tablet 50 MG PO (09:30)
[2019-10-15] MEDS: FUROsemide 40 mg Tablet 60 MG PO (09:31)
[2019-10-15] MEDS: pantoprazole DR 40 mg Tablet PO (09:31)
[2019-10-15] MEDS: losartan 50 mg Tablet PO (09:31)
[2019-10-15] MEDS: aspirin 325 mg Tablet PO (09:32)
[2019-10-15] MEDS: nicotine 21 mg Patch 1 PATCH TRANSDERMA (09:32)
--- NOTE | 2019-10-15 10:59 | PC.NURSE ---
Notified SS called and stated she does not have the hospital bed and bsc yet. Called SS and notified.
[2019-10-15 12:00] LABS: Glucose Point of Care 226 mg/dL (70-110)
--- NOTE | 2019-10-15 13:00 | PC.NURSE ---
called and stated hospice brought his hospital bed and bsc Set- up transport. Reassured about the discharge papers and set-up transport.
--- NOTE | 2019-10-15 15:02 | PC.NURSE ---
Transportation [place] In room. belongings sent with pt. Discharge papers given to pt.
--- NOTE | 2019-10-15 15:23 | PC.NURSE ---
NOTIFIED HOSPICE NURSE ON DISCHARGE TALKED TO [facility] NURSE [facility]. INFORMED HER OF THE PLACED KLEIN CATHETER 10/12/2019. VERBAL ORDER FROM TO KEEP IT IN PLACE FOR COMFORT.
[2019-10-19 10:11] LABS: Glucose Point of Care 167 mg/dL (70-110)
== END 2019-10-15 14:55 | disposition hospice, home (50) | DRG 291 ==
LOC: ER 15:22 → CSU 17:01
PROVIDERS: Student in an Organized Health Care Education/Training Program; Admitting Provider Student in an Organized Health Care Education/Training Program; Emergency Provider Emergency Medicine; Family Provider Family Medicine; Visit Provider Family Medicine
DX: I11.0 Hypertensive heart disease with heart failure (principal); J96.02 Acute respiratory failure with hypercapnia; J96.21 Acute and chronic respiratory failure with hypoxia; J44.1 Chronic obstructive pulmonary disease with (acute) exacerbation; N17.9 Acute kidney failure, unspecified; Z99.81 Dependence on supplemental oxygen; G47.33 Obstructive sleep apnea (adult) (pediatric); I25.10 Atherosclerotic heart disease of native coronary artery without angina pectoris; E66.01 Morbid (severe) obesity due to excess calories; E11.9 Type 2 diabetes mellitus without complications; I48.91 Unspecified atrial fibrillation; E78.5 Hyperlipidemia, unspecified; F17.210 Nicotine dependence, cigarettes, uncomplicated; Z66 Do not resuscitate; Z91.14 Patient's other noncompliance with medication regimen; I50.33 Acute on chronic diastolic (congestive) heart failure; Z79.4 Long term (current) use of insulin
CPT/HCPCS: 12345; 36415; 36416; 36600; 51702; 71045; 80048; 80053; 80061; 82803; 82805; 82962; 83036; 83880; 84484; 85025; 87040; 93005; 94640; 94660; 96372; 96374; 96375; 97161; 97530; 99283; J1120; J1650; J1815; J1940; J2543; J2920; J2930; J3370; J3490; J7050; J7611